=== PATIENT | female | born 1985 | race Caucasian/White ===

== ENCOUNTER 2020-06-28 17:19 | Emergency (ER) | payer MEDICAID ==
[~2020-06-28] VITALS: Ht 160 cm; Wt 77.1 kg
--- NOTE | 2020-06-28 17:40 | NUR ---
DISCHARGE YESTERDAY FROM [facility], TOLD BY [facility]ERO IN INTAKE TO COME HERE FOR MEDICAL CLEARANCE, PLAN TO OD ON PILLS. PATIENT A/OX4, CRYING, APPEARS TO BE ANXIOUS. CHANGED INTO A GOWN, ATTACHED TO THE ASSISTANT PROFESSOR OF SURGERY. NEEDS ATTENDED.
[2020-06-28] MEDS ORDERED: IV NS 0.9% 1,000 ML BAG IV ONE (18:00)
[2020-06-28] MEDS ORDERED: LORAZEPAM INJ 2 MG/ML VIAL IV ONE (18:00)
[2020-06-28] MEDS ORDERED: LORAZEPAM INJ 2 MG/ML VIAL ONE (18:00)
[2020-06-28 18:19] LABS: BILIRUBIN,URINE Negative (NEGATIVE); COLOR,URINE YELLOW (YELLOW); LEUKOCYTE ESTERASE ,URINE Negative (NEGATIVE); NITRITE, URINE Negative (NEGATIVE); PROTEIN,URINE Negative (NEGATIVE); UGLUCOSE 100 MG/DL mg/dL (NEGATIVE); UROBILINOGEN,URINE 0.2 EU/dL (0.2)
[2020-06-28 18:30] LABS: BASOPHILS % (AUTO) 0.2 % (0.0-2.0); EOSINOPHILS % (AUTO) 0.6 % (0.0-6.0); HEMATOCRIT 41 % (33-45); HEMOGLOBIN 13.4 g/dL (11.5-14.8); LYMPHOCYTES # (AUTO) 3.3 /CMM (0.8-4.8); LYMPHOCYTES % (AUTO) 29.8 % (20.0-44.0); MEAN CORPUSCULAR HGB CONC 33 g/dl (31.0-36.0); MEAN CORPUSCULAR VOLUME 84 fL (82-100); MONOCYTES # (AUTO) 0.7 /CMM (0.1-1.30); MONOCYTES % (AUTO) 6.7 % (2.0-12.0); NEUTROPHILS # (AUTO) 7.1 /CMM (1.8-8.9); NEUTROPHILS % (AUTO) 62.7 % (43.0-81.0); PLATELET COUNT (AUTO) 295 /CMM (150-450); RED BLOOD CELL COUNT(AUTO) 4.79 MIL/uL (4.0-5.2); WHITE BLOOD COUNT (AUTO) 11.2 K/uL (4.3-11.0)
[2020-06-28 18:57] LABS: ACETAMINOPHEN < 2 ug/ml (10-30); ALANINE AMINOTRANSFERASE 29 U/L (12-78); ALBUMIN 3.5 g/dL (3.4-5.0); ALCOHOL, BLOOD < 3 mg/dL (0-0); ALKALINE PHOSPHATASE 93 U/L (46-116); ASPARTATE AMINOTRANSFERASE 13 U/L (15-37); BILIRUBIN,TOTAL 0.2 mg/dL (0.2-1.0); CALCIUM, SERUM 8.8 mg/dL (8.5-10.1); CARBON DIOXIDE 26 mmol/L (21-32); CHLORIDE 104 mmol/L (98-107); CREATININE 0.7 mg/dL (0.6-1.3); GLUCOSE 113 mg/dL (74-106); POTASSIUM 4.1 mmol/L (3.5-5.1); SODIUM SERUM 140 mmol/L (136-145); TOTAL PROTEIN, SERUM 7.3 g/dL (6.4-8.2); UREA NITROGEN, BLOOD 13 mg/dL (7-18)
--- NOTE | 2020-06-28 19:34 | NUR ---
REPORT GIVEN TO ELLIOTT GOLDSTEIN FOR [facility].
--- NOTE | 2020-06-28 19:57 | NUR ---
COVID SWAB SENT TO LAB
--- NOTE | 2020-06-28 21:13 | NUR ---
Facesheet and clinicals faxed to [facility] intake.
--- NOTE | 2020-06-29 00:05 | NUR ---
CATIE FROM [facility] INTAKE SPEAKING WITH PATIENT ON THE PHONE REGARDING RECENT DISCHARGE FROM [facility] YESTERDAY
--- NOTE | 2020-06-29 00:09 | NUR ---
PT AAOX4, CALM AND COOPERATIVE. STATES SHE IS NO LONGER SUICIDAL AND WANTS TO BE PICKED UP BY . DR. CALIX MADE AWARE
--- NOTE | 2020-06-29 00:38 | NUR ---
Patient discharged to home in stable condition. Written and verbal after care instructions given. Patient verbalizes understanding of instruction.Pt ambulatory with a steady gait IV removed. Catheter intact and site benign. Pressure and 4x4 applied to site. No bleeding noted.
[2020-06-29 00:41] VITALS: BP 125/86
== END 2020-06-29 00:41 | disposition home or self-care (01) ==
LOC: ER 17:19
DX: F41.9 Anxiety disorder, unspecified (principal); F32.9 Major depressive disorder, single episode, unspecified; R45.851 Suicidal ideations; Z20.822 Contact with and (suspected) exposure to COVID-19; R00.0 Tachycardia, unspecified
CPT/HCPCS: 36415; 80048; 80076; 80299; 80307; 80320; 81003; 84703; 85025; 87426; 93005; 96361; 96374; 99284; C9803; J2060; J7030; G0480